=== PATIENT | female | born 1990 | race Caucasian/White ===

== ENCOUNTER 2023-09-04 19:49 | Emergency (ER) | payer MEDICAID ==
[~2023-09-04] VITALS: Ht 170.2 cm; Wt 161.5 kg
[2023-09-04 19:57] VITALS: TEMP 98.2; O2SAT 100
[2023-09-04 21:55] VITALS: BP 120/67; PULSE 82; RESP 16
[2023-09-04] MEDS: KETOROLAC 60MG/2ML VIAL IM ONE (21:55)
[2023-09-05] MEDS ORDERED: KETO10TA2 MT (00:33)
== END 2023-09-05 01:30 | disposition home or self-care (01) ==
LOC: ER 19:49
DX: S82.891A Other fracture of right lower leg, initial encounter for closed fracture (principal); M54.50 Low back pain, unspecified; W18.39XA Other fall on same level, initial encounter; Y93.89 Activity, other specified; Y92.89 Other specified places as the place of occurrence of the external cause; Y99.8 Other external cause status
CPT/HCPCS: 73610; 73630; 72131; 29515; 96372; 99285; J1885; Z7610 ×2